=== PATIENT | female | born 1970 | race Caucasian/White ===

== ENCOUNTER 2019-08-01 19:12 | Emergency (ER) | payer MEDICAID, SELFPAY ==
--- NOTE | 2019-08-01 19:14 | ED.GENADUL_ITS ---
Discharge Plan Disposition Patient Disposition: HOME Condition: Good Discharge Details Chief Complaint: Abd Prob Clinical Impression: Abdominal pain, Dehydration Primary Care Provider: Pretty Dunlap ED Provider: Karley Warren Home Meds and New Rx's Prescriptions: New metronidazole [Flagyl] 500 mg tablet 500 mg PO TID Qty: 21 RF: 0 ciprofloxacin HCl 500 mg tablet 500 mg PO Q12H Qty: 14 RF: 0 Continued lamotrigine 150 mg Tablet See Rx Instructions .ROUTE .COMPLEX RF: 0 levothyroxine 175 mcg Tablet 175 mcg PO DAILY RF: 0 gabapentin 800 mg Tablet 800 mg PO TID RF: 0 Discharge Instructions Instructions: Ciprofloxacin (By mouth), Metronidazole (By mouth), Oxycodone, Rapid Release (By mouth), Abdominal Pain (ED) Additional Instructions: Your imaging is reassuring today. Radiologist advised that you may haveInflammation of the colon this is not definitively clear on your CT. There is evidence of diverticulosis as we discussed but it does not appear acutely infected. However, your history is concerning for you potentially developing diverticulitis and will treat as such with antibiotics. You are given your first dosing for tonight. You are sent home with a dose of the antibiotics. You will need to brick picker the remaining antibiotics at the pharmacy tomorrow. You may use Tylenol to help with your discomfort. I have asked our nurse wound care to schedule follow-up appointment for you on Tuesday for reevaluation. If you do not hear from them tomorrow, please call your primary care to discuss prompt follow up appointment. If you develop increased pain, fevers, inability stay hydrated or other new/worsening symptoms please seek care urgently once again. Discharge Data Discharge Date/Time-TO BE ENTERED AT DEPARTURE: 08/01/19 21:45 Medical Decision Making Patient is a pleasant 48-year-old female presents today with chief complaint of abdominal pain. She reports the pain began 3 days ago and was maximally in the left side. Over, this morning she states the pain began rating of the right side. 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 She has not had pain like this historically. She denies fevers but endorses chills. She endorses nausea and vomiting. Reports vomiting x3 today. Denies any hem atemesis. States she has 1 bowel movement per day but feels constipated in between. States that she was able to drink broth and have one slice of bread today. Patient reports that she has throat swelling with morphine, codeine and fentanyl. Only Dilaudid works for her. She refused IV tylenol. Creatinine 1.37, patient states that she has baseline kidney dysfunction. I have no previous for comparison. She states that she is s/p nephrectomy on the right and her left kidney only functions 50%. Will obtain noncontrast CT. remaining labs were reviewed. Patient has no leukocytosis. She is not anemic. No electrolyte abnormalities. Alk phos is slightly elevated at 126, no previous for comparisons. Urinalysis suggestive of dehydration. She does have few RBCs. Will advise that she discuss this further with her primary care FINDINGS: Lungs: Tiny scattered nodules are seen at the lung bases measuring up to 3 mm. Liver: Unremarkable. Gallbladder and bile ducts: Prior cholecystectomy. Pancreas: Calcifications in the pancreatic head may be related to chronic pancreatitis. Spleen: Unremarkable. Adrenals: Unremarkable. Kidneys and ureters: The right kidney has been resected. No hydronephrosis on the left. No renal calculi. Stomach and bowel: No bowel obstruction. There is colonic diverticulosis. The colon is decompressed, limiting evaluation. There appears to be mild diffuse wall thickening within the descending and rectosigmoid colon. No focal inflammatory changes are seen to indicate diverticulitis. Appendix: No evidence of appendicitis. Intraperitoneal space: No free air or free fluid. Vasculature: No aortic aneurysm. Lymph nodes: No pathologically enlarged lymph nodes. Bladder: Unremarkable as visualized. Reproductive: Prior hysterectomy. Bones/joints: Degenerative changes at L5-S1 with mild canal stenosis. No acute fracture. No destructive bone lesion. Soft tissues: Unremarkable. IMPRESSION: 1. Mild left colon wall thickening may be due to nonspecific colitis versus lack of distension. 2. Colonic diverticulosis without convincing evidence of diverticulitis. 3. No other acute abnormality identified. 4. Additional incidental/non-emergent findings, as above. Discussed these findings with the patient. While the CT does not suggest stacey diverticulitis, her exam and history is concerning for such. Therefore, we will begin the patient on Flagyl and ciprofloxacin. She has recently established care with Pretty Dunlap but has not actually been seen by her. I have asked that her upcoming appointment for next month be moved up to this Tuesday for reevaluation. Patient and I did discuss pain management in depth. Patient was endorsing some constipation and had diminished bowel sounds. I am very concerned regarding this patient receiving opiates as I feel that this would likely exacerbate her symptoms. However, the patient is very insistent on having narcotics. She does have multiple narcotic allergies which she reports causes throat swelling. Although she states that dilaudid and oxycodone both work well for her. PDMP review was performed showing the patient has been receiving Ritalin and gabapentin in [place]. She does exhibit narcotic seeking behavior. We discussed nonnarcotic options for which the patient has reasons for not taking all options discussed. She is consistent with reports of very high discomfort, I will give her 1 dose of oxycodone here, I am concerned that continuation of this may cause a more harm than good if it was continued. She recieved her first dose of antibiotics. She was able to tolerate these well. She has discussed the labs and imaging at length. She was given strict return precautions. We did discuss potential complications associated with diverticulitis. All of her questions and concerns were addressed and she is in agreement this plan. [facility] General Mode of arrival: ambulatory . Date/Time Provider Initiated Documentation: 08/01/19 19:14 . Limitations to Documentation: no limitations . Information obtained by: patient and RN notes reviewed . History of Present Illness 48 year old F presents to the emergency department with the chief complaint of left sided abdominal pain, described as severe, with intensity rated at 10. Quality is described as sharp, and is localized to the abdomen. Patient reports no radiation. Patient started experiencing this day(s) (3) and it has been constant. No relieving factors improve symptom(s), No exacerbating factors reported . Patient notes fever/chills (States she has had chills but no fever), loss of appetite and nausea/vomiting (Endorses vomiting x3); denies chest pain, cough, diaphoresis, headaches, rash, shortness of breath and weakness. Patient did receive the following treatments prior to arrival, none Related Data Home Medications Medication Instructions Recorded Confirmed ciprofloxacin HCl 500 mg PO Q12H #14 tab 08/01/19 gabapentin 800 mg PO TID 08/01/19 08/01/19 lamotrigine See Rx Instructions .ROUTE .COMPLEX 08/01/19 08/01/19 levothyroxine 175 mcg PO DAILY 08/01/19 08/01/19 metronidazole [Flagyl] 500 mg PO TID #21 tab 08/01/19 Previous Rx's Medication Instructions Recorded ciprofloxacin HCl 500 mg PO Q12H #14 tab 08/01/19 metronidazole [Flagyl] 500 mg PO TID #21 tab 08/01/19 Allergies Allergy/AdvReac Type Severity Reaction Status Date / Time codeine Allergy Unverified 08/01/19 19:27 fentanyl Allergy Unverified 08/01/19 19:26 morphine Allergy Unverified 08/01/19 19:27 Review of Systems Constitutional Constitutional: Reports as per HPI, Denies chills, Denies fatigue, Denies fever(s) and Denies headache(s) ENT Ears, Nose, Mouth, and Throat: Denies headache(s) Cardiovascular Cardiovascular: Reports as per HPI, Denies chest pain and Denies dyspnea Respiratory Respiratory: Reports as per HPI, Denies cough and Denies dyspnea Gastrointestinal Gastrointestinal: Reports as per HPI Musculoskeletal Musculoskeletal: Reports as per HPI and Denies back pain Integumentary/Breasts Skin/Breast: Reports as per HPI and Denies rash Neurologic Neurologic: Reports as per HPI and Denies headache(s) Endocrine Endocrine: Denies fatigue [facility] Surgical History (Updated 08/01/19 @ 19:34 by JULIANA Carranza) History of cholecystectomy (Chronic) History of right nephrectomy (Acute) Previous section (Chronic) Social History Smoking/Tobacco Use Status: Current every day Tobacco Type: cigarettes Do you feel safe at home: Yes Do you feel safe in your relationship?: Yes Exam Const General: cooperative, healthy appearing, uncomfortable (appears uncomfortable on exam), no acute distress and well developed Nutritional Appearance: well nourished and overweight Orientation: alert and awake [facility] Head: normal to inspection Mouth: moist mucous membranes Resp Effort & Inspection: normal respiratory effort, able to speak in complete sentences and no respiratory distress Auscultation: clear to auscultation bilaterally, no rales, no rhonchi and no wheezes Cardio Rate: regular rate Rhythm: regular rhythm Heart Sounds: S1 normal and S2 normal GI Inspection: normal to inspection, no edema, non-distended, obesity, no visible herniation and no visible pulsation Palpation: soft, no hepatosplenomegaly, not firm, no guarding, no hernias, not rigid and tender (diffusely tender, maximal on left mid abdoman) Percussion: normal to percussion Auscultation: hypoactive bowel sounds Back/Spine/Pelvis Back: no CVA tenderness Skin General skin exam: no rashes or lesions noted Trauma: no lacerations or abrasions Neuro General: patient alert and patient awake Cognition: normal cognition Speech: speech normal Gait: normal gait Psych Appearance: grossly normal and well kempt Mental Status: mental status grossly normal Speech and Movement: speech and movement normal
[2019-08-01 19:17] VITALS: BP 136/80; PULSE 95; RESP 18; TEMP 36.3; O2SAT 98
[2019-08-01 19:34] LABS: Bilirubin Negative (Negative); Blood Trace-intact (Negative); Clarity Clear (Clear); Glucose Negative (Negative); Ketones Negative (Negative); Leukocyte Esterase Negative (Negative); Nitrite Negative (Negative); Specific Gravity >= 1.030 (1.005-1.025); Urobilinogen 0.2 EU/dL (Up TO 0.2)
[2019-08-01 19:41] LABS: WBC 0-2 HPF (0-5)
[2019-08-01 19:42] LABS: Bacteria Few HPF (Negative); C & S Indicated? No; Casts Negative LPF (Negative); Crystals Negative HPF (Negative); Epithelial Cells Rare HPF (Negative); Mucus Negative (Negative); Other Cells Negative (Negative)
[2019-08-01] MEDS: Ondansetron 4 MG/2 ML VIAL IVP (19:52)
[2019-08-01] MEDS: Normal Saline 1,000 ML 1000 ML IV (19:54)
[2019-08-01 20:00] LABS: Abs Immature Grans 0.02 k/cumm (0.0-0.09); Absolute Basophil Count 0.02 k/cumm (0.0-0.2); Absolute Eosinophil Count 0.12 k/cumm (0.0-0.7); Absolute Lymphocyte Count 2.13 k/cumm (1.2-3.4); Absolute Monocyte Count 0.47 k/cumm (0.11-0.7); Absolute Neutrophil Count 3.41 k/cumm (1.2-6.7); Basophils % 0.3; Eosinophils % 1.9; HCT 43.5 % (36.0-46.0); HGB 14.6 g/dL (12.0-15.5); Immature Grans % 0.3 %; Lymphocytes % 34.5; Mean Corp. HGB Concentration 33.6 g/dL (32.0-36.0); Mean Corpuscular Hemoglobin 29.7 pg (27.0-33.0); Mean Corpuscular Volume 88.4 fL (80-95); Mean Platelet Volume 7.8 fL (8.0-11.0); Monocytes % 7.6; Neutrophils % 55.4; Platelet Count 323 x1000/uL (130-400); RBC 4.92 m/cumm (4.00-5.20); RBC Distribution Width 13.4 % (11.7-14.6); White Blood Cell Count 6.17 k/cumm (4.4-10.8)
[2019-08-01 20:12] LABS: ALT 24 U/L (14-59); AST 15 U/L (15-37); Albumin 3.9 g/dL (3.4-5.0); Alkaline Phosphatase 126 U/L (46-116); Anion Gap 10.1 mmol/L (3-11); BUN 17 mg/dL (7-18); Bilirubin, Total 0.3 mg/dL (0.2-1.0); CO2 27.9 mmol/L (21.0-32.0); CREATININE 1.37 mg/dL (0.55-1.02); Calcium 9.2 mg/dL (8.5-10.1); Chloride 104 mmol/L (98-107); Estimated GFR 41.33 (mL/min/1.73m2); Glucose 153 mg/dL (74-106); Lipase 260 U/L (73-393); Potassium 3.7 mmol/L (3.5-5.1); Sodium 142 mmol/L (136-145)
--- NOTE | 2019-08-01 20:47 | DI.CT_ITS ---
EXAM: CT ABDOMEN PELVIS WO CLINICAL HISTORY: left sided pain, fairly diffuse. TECHNIQUE: Imaging Protocol: Axial computed tomography images with coronal and sagittal reformatted images were created and reviewed. Oral: yes / no COMPARISON: No exams were available for comparison FINDINGS: The heart size is normal. The lung bases show a few tiny nodules measuring up to 3 millimeters. The patient is status post cholecystectomy. No biliary dilatation is seen. There is no focal fluid col lection. The patient is status post right nephrectomy. There is no evidence of left hydronephrosis or left renal calculi. The bladder is unremarkable. Appendix appears normal. There is diverticulos is seen throughout the colon, greatest of the descending and sigmoid. There is no evidence of divert iculitis. There is no bowel dilatation. The spleen shows a few calcifications. The adrenals are un remarkable. There are a few pancreatic calcifications. No adenopathy is seen. There is no evidence of free air or free fluid. Degenerative changes are noted in the spine, greatest at L5-S1. IMPRESSION: Diverticulosis without evidence of diverticulitis. Status post cholecystectomy and right nephrectomy . Unremarkable left kidney and urinary bladder. DATA REPOSITORY: All CT scans at this facility are submitted to the National Radiology Data Registry (NRDR) Dose Index Registry (DIR) with the [employer] (ACR). RADIATION OPTIMIZATION: All CT scans at this facility use at least one of these dose optimization te chniques: automated exposure control; mA and/or kV adjustment per patient size (includes targeted exa ms where dose is matched to clinical indication); or iterative reconstruction.
--- NOTE | 2019-08-01 21:17 | DI.VRAD_ITS ---
PROCEDURE INFORMATION: Exam: CT Abdomen And Pelvis Without Contrast Exam date and time: 08/01/2019 8:38 PM Age: 48 years old Clinical indication: Abdominal pain; Localized; Left lower quadrant (llq); Prior surgery; Surgery date: 6+ months; Surgery type: Gallbladder, RT. Nephrectomy, ; Patient HX: Llq pain radiating to right TECHNIQUE: Imaging protocol: Computed tomography of the abdomen and pelvis without contrast. Radiation optimization: All CT scans at this facility use at least one of these dose optimization techniques: automated exposure control; mA and/or kV adjustment per patient size (includes targeted exams where dose is matched to clinical indication); or iterative reconstruction. COMPARISON: No relevant prior studies available. FINDINGS: Lungs: Tiny scattered nodules are seen at the lung bases measuring up to 3 mm. Liver: Unremarkable. Gallbladder and bile ducts: Prior cholecystectomy. Pancreas: Calcifications in the pancreatic head may be related to chronic pancreatitis. Spleen: Unremarkable. Adrenals: Unremarkable. Kidneys and ureters: The right kidney has been resected. No hydronephrosis on the left. No renal calculi. Stomach and bowel: No bowel obstruction. There is colonic diverticulosis. The colon is decompressed, limiting evaluation. There appears to be mild diffuse wall thickening within the descending and rectosigmoid colon. No focal inflammatory changes are seen to indicate diverticulitis. Appendix: No evidence of appendicitis. Intraperitoneal space: No free air or free fluid. Vasculature: No aortic aneurysm. Lymph nodes: No pathologically enlarged lymph nodes. Bladder: Unremarkable as visualized. Reproductive: Prior hysterectomy. Bones/joints: Degenerative changes at L5-S1 with mild canal stenosis. No acute fracture. No destructive bone lesion. Soft tissues: Unremarkable. IMPRESSION: 1. Mild left colon wall thickening may be due to nonspecific colitis versus lack of distension. 2. Colonic diverticulosis without convincing evidence of diverticulitis. 3. No other acute abnormality identified. 4. Additional incidental/non-emergent findings, as above. Dictated and Authenticated by: Goran Drummond MD. Ordering:FRANK Crandall MD
[2019-08-01] MEDS: Ciprofloxacin 500 MG TAB PO ×2 (21:46)
[2019-08-01] MEDS: oxyCODONE 5 MG TAB PO (21:47)
[2019-08-01 21:48] VITALS: BP 166/78; PULSE 86; RESP 16; O2SAT 99
[2019-08-01] MEDS: metroNIDAZOLE 500 MG TAB PO ×2 (21:48)
--- NOTE | 2019-08-01 21:50 | NUR.NOTE ---
FAXED REFERAL TO [facility] 08/01/19Nursing Note:
== END 2019-08-01 21:45 | disposition home or self-care (01) ==
PROVIDERS: Emergency Provider Physician Assistant; PCP Nurse Practitioner
DX: R10.12 Left upper quadrant pain (principal); E86.0 Dehydration; K57.30 Diverticulosis of large intestine without perforation or abscess without bleeding; Z90.5 Acquired absence of kidney
CPT/HCPCS: 80053; 81025; 83690; 96361; 96374; 99284; 74176; 81003; 81015; 83735; 85025; J2405

== ENCOUNTER 2019-08-02 15:36 | Emergency (ER) | payer MEDICAID, SELFPAY ==
[2019-08-02] VITALS (10 sets, daily range): BP systolic 110–172; BP diastolic 63–93; PULSE 55–71; RESP 14–16; TEMP 36.6–36.8; O2SAT 95–98
--- NOTE | 2019-08-02 15:50 | ED.GENADUL_ITS ---
Discharge Plan Disposition Patient Disposition: HOME Condition: Stable Discharge Details Chief Complaint: Abd Prob Clinical Impression: Abdominal pain Primary Care Provider: Pretty Dunlap ED Provider: Dev Cali Home Meds and New Rx's Prescriptions: New diazepam [Valium] 5 mg tablet 5 mg PO TID PRN (Reason: muscle spasm) Qty: 20 RF: 0 Continued lamotrigine 150 mg Tablet See Rx Instructions .ROUTE .COMPLEX RF: 0 levothyroxine 175 mcg Tablet 175 mcg PO DAILY RF: 0 gabapentin 800 mg Tablet 800 mg PO TID RF: 0 metronidazole [Flagyl] 500 mg tablet 500 mg PO TID Qty: 21 RF: 0 ciprofloxacin HCl 500 mg tablet 500 mg PO Q12H Qty: 14 RF: 0 Discharge Instructions Instructions: Abdominal Pain (ED) Additional Instructions: follow up with your primary care provider within 1 week if you feel you are becoming more ill, have persistent vomit or fevers return to the emergency department Medical Decision Making 48 yo female with hx of cholecystectomy and c section, solitary kidney, hepatitis C, who comes in with chief complaint of abdominal pain. Was seen yesterday and had reassuring lab work and imaging and diagnosed with possible early diverticulitis. D/c'd with cipro ,flagyl and also zofran and despite tylenol has had increasing pain in lower abdomen along with n/v so came back today. Denies fevers, chest pain, sob. She has tenderness throughout the lower abdomen with no guarding or rebound on exam. Could be worsening colitis vs sbo vs pneumoperitoneum. Will obtain labs and imaging to eval for these along with pancreatitis. labs and imaginag show no acute findings and her pain is gone. Given the intermittent pain suspect this could be from spasm. She has no tenderness on exam and given reassuring labs and imaging feel she can be d/c'd with pcp f/u and return precautions given Differential Diagnosis Differential Diagnosis: diverticulitis, pneumoperitoneum, sbo Medical Records Medical records reviewed: Yes I reviewed the patient's medical records. Imaging Data Radiologic Study: Attestation: I personally reviewed and interpreted this imaging study as follows: Imaging: CT Scan Radiologist's impression: no acute findings Lab Data Lab results reviewed: Yes I reviewed the patient's lab results. HPI General Mode of arrival: ambulatory . Date/Time Provider Initiated Documentation: 08/02/19 15:39 . Limitations to Documentation: no limitations . Information obtained by: patient . History of Present Illness 48 year old F presents to the emergency department with the chief complaint of abdominal pain, described as moderate, and is localized to the abdomen. Patient started experiencing this day(s) (2) and it has been constant. No relieving factors improve symptom(s), No exacerbating factors reported . Patient notes nausea/vomiting. Related Data Home Medications Medication Instructions Recorded Confirmed ciprofloxacin HCl 500 mg PO Q12H #14 tab 08/01/19 gabapentin 800 mg PO TID 08/01/19 08/01/19 lamotrigine See Rx Instructions .ROUTE .COMPLEX 08/01/19 08/01/19 levothyroxine 175 mcg PO DAILY 08/01/19 08/01/19 metronidazole [Flagyl] 500 mg PO TID #21 tab 08/01/19 diazepam [Valium] 5 mg PO TID PRN #20 tab 08/02/19 Previous Rx's Medication Instructions Recorded ciprofloxacin HCl 500 mg PO Q12H #14 tab 08/01/19 metronidazole [Flagyl] 500 mg PO TID #21 tab 08/01/19 diazepam [Valium] 5 mg PO TID PRN #20 tab 08/02/19 Allergies Allergy/AdvReac Type Severity Reaction Status Date / Time codeine Allergy Unverified 08/01/19 19:27 fentanyl Allergy Unverified 08/01/19 19:26 morphine Allergy Unverified 08/01/19 19:27 General Stated Complaint: Abd Prob SALVATORE: 3 Review of Systems All systems reviewed & are unremarkable except as noted in HPI and below Constitutional Constitutional: Denies chills and Denies fever(s) ENT Ears, Nose, Mouth, and Throat: Denies change in voice Cardiovascular Cardiovascular: Denies chest pain and Denies dyspnea Respiratory Respiratory: Denies cough and Denies dyspnea Musculoskeletal Musculoskeletal: Denies joint swelling [facility] Surgical History (Updated 08/01/19 @ 19:34 by JULIANA Carranza) History of cholecystectomy (Chronic) History of right nephrectomy (Acute) Previous section (Chronic) Social History Smoking/Tobacco Use Status: Current every day Tobacco Type: cigarettes Alcohol Intake: never Substance use type: does not use Do you feel safe at home: Yes Do you feel safe in your relationship?: Yes Exam Const General: no acute distress Orientation: alert HENMT Head: normal to inspection Ears: external ears normal General nose exam: external nose normal Mouth: moist mucous membranes Eyes General: appearance normal, both eyes and all related structures Neck Neck: normal visual inspection Resp Effort & Inspection: normal respiratory effort and able to speak in complete sentences Cardio Rate: regular rate GI Palpation: soft and tender Skin General skin exam: no rashes or lesions noted Neuro General: patient alert and patient oriented x3 Extrem General: normal to inspection Psych Mental Status: mental status grossly normal Course Vital Signs Vital signs: Vital Signs Temperature 36.6 C 08/02/19 15:40 Pulse 69 08/02/19 15:40 Respiratory Rate 16 08/02/19 15:40 Blood Pressure 172/90 H 08/02/19 15:40 Pulse Oximetry 97 08/02/19 15:40 Temperature 36.6 C 08/02/19 15:40 Pulse 69 08/02/19 15:40 Respiratory Rate 16 08/02/19 15:40 Respiratory Effort Non-Labored 08/02/19 15:43 Blood Pressure 172/90 H 08/02/19 15:40 Blood Pressure Position Sitting 08/02/19 15:40 Pulse Oximetry 97 08/02/19 15:40 Oxygen Delivery Method Room Air 08/02/19 15:40 Oxygen Flow Rate 0 08/02/19 15:40 Pain Level 8 08/02/19 15:44
[2019-08-02] MEDS: HYDROmorphone 2 MG/ML VIAL 1 MG IVP (15:55)
[2019-08-02] MEDS: Normal Saline 1,000 ML 1000 ML IV (15:56)
[2019-08-02] MEDS: Prochlorperazine 10 MG/2 ML VIAL IVP (15:56)
[2019-08-02 15:57] LABS: Abs Immature Grans 0.02 k/cumm (0.0-0.09); Absolute Basophil Count 0.02 k/cumm (0.0-0.2); Absolute Eosinophil Count 0.07 k/cumm (0.0-0.7); Absolute Lymphocyte Count 1.64 k/cumm (1.2-3.4); Absolute Monocyte Count 0.48 k/cumm (0.11-0.7); Absolute Neutrophil Count 3.92 k/cumm (1.2-6.7); Basophils % 0.3; Eosinophils % 1.1; HGB 13.5 g/dL (12.0-15.5); Immature Grans % 0.3 %; Lymphocytes % 26.7; Mean Corp. HGB Concentration 33.8 g/dL (32.0-36.0); Mean Corpuscular Hemoglobin 29.7 pg (27.0-33.0); Mean Corpuscular Volume 88.1 fL (80-95); Mean Platelet Volume 7.5 fL (8.0-11.0); Monocytes % 7.8; Neutrophils % 63.8; Platelet Count 301 x1000/uL (130-400); RBC 4.54 m/cumm (4.00-5.20); RBC Distribution Width 13.4 % (11.7-14.6); White Blood Cell Count 6.15 k/cumm (4.4-10.8)
[2019-08-02 16:16] LABS: ALT 21 U/L (14-59); AST 13 U/L (15-37); Albumin 3.8 g/dL (3.4-5.0); Alkaline Phosphatase 110 U/L (46-116); Anion Gap 8.3 mmol/L (3-11); BUN 13 mg/dL (7-18); Bilirubin, Direct 0.07 mg/dL (0.00-0.20); Bilirubin, Total 0.5 mg/dL (0.2-1.0); CO2 27.7 mmol/L (21.0-32.0); CREATININE 1.06 mg/dL (0.55-1.02); Calcium 9.2 mg/dL (8.5-10.1); Chloride 104 mmol/L (98-107); Estimated GFR 55.57 (mL/min/1.73m2); Glucose 100 mg/dL (74-106); INR 1.1 (0.9-1.1); Lipase 175 U/L (73-393); Magnesium 1.9 mg/dL (1.8-2.4); PTT Activated 25.4 sec (21.0-31.4); Potassium 3.9 mmol/L (3.5-5.1); Sodium 140 mmol/L (136-145); Total Protein 7.6 g/dL (6.4-8.2)
[2019-08-02 16:28] LABS: Bilirubin Negative (Negative); Blood Trace-intact (Negative); Clarity Clear (Clear); Glucose Negative (Negative); Ketones Negative (Negative); Leukocyte Esterase Negative (Negative); Nitrite Negative (Negative); Specific Gravity 1.025 (1.005-1.025); Urobilinogen 0.2 EU/dL (Up TO 0.2); pH 5.5 (5-8)
--- NOTE | 2019-08-02 16:36 | DI.CT_ITS ---
EXAM: CT ABDOMEN PELVIS WO CLINICAL HISTORY: worsening lower abdominal pain. TECHNIQUE: Imaging Protocol: Axial computed tomography images with coronal and sagittal reformatted images were created and reviewed. COMPARISON: CT ABDOMEN PELVIS WO from 08/01/2019 FINDINGS: ABDOMEN: Lung Bases: Unchanged compared to the prior examination Liver: Normal density. No measurable mass. Gallbladder and biliary tract: Status post cholecystectomy. The common duct now measures 1.3 cm comp ared with 0.9 cm from the prior examination. No choledocholithiasis is identified. Pancreas: Stable calcifications seen in the pancreas. Spleen: There are scattered punctate calcifications present consistent with prior granulomatous expos ure. Kidneys: Status post right nephrectomy. The left kidney has no radiodense stone or obstructive uropa thy. No masses seen. Adrenal glands: No masses seen. Lymph nodes: Within normal limits. Abdominal Aorta: Abdominal portion non-dilated. Atherosclerosis. PELVIS: Bladder: Symmetric distention, no gross wall thickening. Bowel: Diffuse diverticulosis in the colon but no evidence of acute diverticulitis. No evidence of b owel obstruction or inflammation. No evidence of an acute appendicitis. Peritoneal cavity: No ascites, collection or mesenteric inflammatory response. Reproductive organs: Status post hysterectomy. Bones: Degenerative changes in the spine. The findings are most marked at L5-S1. Soft Tissues: Within normal limits. IMPRESSION: 1. Interval increase in size of the common duct. No evidence of stone or mass. Ultrasound may be co nsidered for further evaluation. DATA REPOSITORY: All CT scans at this facility are submitted to the National Radiology Data Registry (NRDR) Dose Index Registry (DIR) with the [employer] (ACR). RADIATION OPTIMIZATION: All CT scans at this facility use at least one of these dose optimization te chniques: automated exposure control; mA and/or kV adjustment per patient size (includes targeted exa ms where dose is matched to clinical indication); or iterative reconstruction.
[2019-08-02 16:46] LABS: Bacteria Few HPF (Negative); C & S Indicated? No; Casts Negative LPF (Negative); Crystals Negative HPF (Negative); Epithelial Cells Few HPF (Negative); Mucus Negative (Negative); RBC 0-2 HPF (0-2); WBC 0-2 HPF (0-5)
--- NOTE | 2019-08-02 16:47 | DI.VRAD_ITS ---
PROCEDURE INFORMATION: Exam: CT Abdomen And Pelvis Without Contrast Exam date and time: 08/02/2019 4:28 PM Age: 48 years old Clinical indication: Abdominal pain; Other: Lower abd pain TECHNIQUE: Imaging protocol: Computed tomography of the abdomen and pelvis without contrast. Radiation optimization: All CT scans at this facility use at least one of these dose optimization techniques: automated exposure control; mA and/or kV adjustment per patient size (includes targeted exams where dose is matched to clinical indication); or iterative reconstruction. COMPARISON: CT ABDOMEN PELVIS WO 08/01/2019 8:44 PM FINDINGS: Liver: Normal. No mass. Gallbladder and bile ducts: Cholecystectomy. Pancreas: Normal. No ductal dilation. Spleen: Splenic granulomas. Adrenals: Normal. No mass. Kidneys and ureters: Right nephrectomy. Stomach and bowel: colonic diverticulosis without diverticulitis. Appendix: No evidence of appendicitis. Intraperitoneal space: Unremarkable. No free air. No significant fluid collection. Vasculature: Mild atherosclerosis. Lymph nodes: Unremarkable. No enlarged lymph nodes. Bladder: Unremarkable as visualized. Reproductive: Hysterectomy. Bones/joints: Degenerative disc disease at L5-S1. Soft tissues: Unremarkable. IMPRESSION: No acute finding. Dictated and Authenticated by: Alphonso Sweeney MD. Ordering:PRISCILA Méndez MD
== END 2019-08-02 17:02 | disposition home or self-care (01) ==
PROVIDERS: Emergency Provider Emergency Medicine; PCP Nurse Practitioner
DX: R10.84 Generalized abdominal pain (principal); M62.838 Other muscle spasm; R11.2 Nausea with vomiting, unspecified; Z90.5 Acquired absence of kidney
CPT/HCPCS: 80053; 83690; 96361; 96374; 96375; 99285; 74176; 81003; 81015; 82248; 83605; 83735; 85025; 85610; 85730; 99284; J0780